=== PATIENT | female | born 1980 | race Two or more races ===

== ENCOUNTER 2025-01-27 16:32 | Inpatient (IN) | payer OTHER ==
[~2025-01-27] VITALS: Ht 162.6 cm; Wt 59.0 kg
--- NOTE | 2025-01-27 16:41 | NUR ---
PTE ALERTA Y ORIENTADA X 3 ESFERAS QUIEN REFIERE TENER LAB REALIZADOS AHORA QUE MUESTRAN HGB EN 7,AL MOMENTO NIEGA ALGUN SINTOMA O [place] VISIBLE.
[2025-01-27] MEDS ORDERED: 0.9 % SODIUM CHLORIDE 1,000 ML IV SCH ×2 (17:00→18:45)
--- NOTE | 2025-01-27 17:02 | NUR ---
TIM BRUNO REALIZA LAB AVA ORDEN MEDICA BAJO MEDIDAS ASEPTICAS. SE ORIENTA PTE QUIEN REFIERE ENETNDER Y ACEPTAR.
[2025-01-27 17:09] LABS: BASO % 0.9 % (0.1-1.2); EOS # 0.15 (0.04-0.54); EOS % 2.6 % (0.7-7.0); LYMPH # 1.32 (1.18-3.74); LYMPH % 23.2 % (19.3-53.1); MEAN CORPUSCULAR HEMOGLOBIN 20.7 pg (25.6-32.2); NEUT # 3.75 (1.56-6.13); NEUT % 66.1 % (34.0-71.1); PLATELET COUNT 394 K/uL (163-369); RED BLOOD COUNT 3.28 M/uL (3.93-5.22)
[2025-01-27 17:20] LABS: HEMATOCRIT 24.1 % (34.1-44.9); HEMOGLOBIN 6.8 g/dL (11.2-15.7)
[2025-01-27] MEDS ORDERED: FUROsemide 20 MG/2 ML VIAL IV SCH (17:30)
[2025-01-27 17:34] LABS: INR 1.05; PARTIAL THROMBOPLASTIN TIME 23.4 SECONDS (22.0-34.0); PROTHROMBIN TIME 11.4 SECONDS (9.0-11.5)
[2025-01-27 17:47] LABS: ALBUMIN 3.9 gm/dL (3.4-5.0); BILIRUBIN TOTAL 0.44 mg/dL (0.3-1.2); CALCIUM 8.7 mg/dL (8.5-10.1); CREATININE SERUM 0.82 mg/dL (0.55-1.02); GFR 75.39; GLOBULINA 3.4 G/DL (2.4-3.5); POTASSIUM 3.29 mEq/L (3.5-5.1); TOTAL PROTEIN 7.3 gm/dL (6.4-8.2)
--- NOTE | 2025-01-27 17:48 | NUR ---
SE REQUIZAN 3 UNIDADES DE PRBC A PTE AVA ORDEN MEDICA. PTE FIRMA CONSENTIMIENTO DE TRANSFUSION, SE COLOCA EN MISMO EN RECORD DE PTE.
[2025-01-27] MEDS ORDERED: FAMOTIDINE/PF 20 MG in 0.9 % SODIUM CHLORIDE 8 ML IV PUSH SCH (18:37)
[2025-01-27] MEDS ORDERED: ACETAMINOPHEN 500 MG GEL..CAP PO PRN (18:45)
[2025-01-27] MEDS ORDERED: POTASSIUM BICARBONATE/CIT AC 25 MEQ TABLET.EFF PO ONE (18:45)
[2025-01-27 22:06] LABS: FERRITIN 1.8 NG/ML (8-252)
[2025-01-27 23:39] VITALS: BP 95/60; O2SAT 96
[2025-01-28] VITALS (8 sets, daily range): BP systolic 99–102; BP diastolic 70–71; O2SAT 98–100
[2025-01-28 02:02] LABS: PH,URINE 6.5 (5.0-8.0); URINE APPEARANCE Clear; URINE BILIRRUBIN Negative (NEGATIVE); URINE BLOOD Negative; URINE COLOR Yellow; URINE GLUCOSE Negative (NEGATIVE); URINE KETONE Trace (NEGATIVE); URINE LEUKOCYTE Negative; URINE NITRATE Negative; URINE PROTEIN Negative (NEGATIVE)
[2025-01-28 02:06] LABS: URINE BACTERIA 1709.8 uL (0.0-1933); URINE EPITHELIAL CELLS 95.1 uL (0.0-38.8); URINE RBC 2.2 uL (0.0-20.8); URINE WBC 17.5 uL (0.0-23.2)
[2025-01-28 02:15] LABS: URINE CAST 0.44 uL (0.0-1.40)
[2025-01-28] MEDS ORDERED: IRON FUM,PS/FOLIC/BCOMP,C NO.9 1 CAP CAPSULE PO SCH (09:00)
[2025-01-28 16:33] LABS: ob NEGATIVE (NEGATIVE)
[2025-01-29 00:42] LABS: BASO % 0.7 % (0.1-1.2); EOS # 0.27 (0.04-0.54); EOS % 4.4 % (0.7-7.0); HEMATOCRIT 32.1 % (34.1-44.9); HEMOGLOBIN 9.7 g/dL (11.2-15.7); LYMPH # 1.79 (1.18-3.74); LYMPH % 29.4 % (19.3-53.1); MEAN CORPUSCULAR HEMOGLOBIN 22.6 pg (25.6-32.2); MONO # 0.44 (0.24-0.82); MONO % 7.2 % (4.7-12.5); NEUT # 3.53 (1.56-6.13); NEUT % 58.1 % (34.0-71.1); PLATELET COUNT 296 K/uL (163-369); RED BLOOD COUNT 4.29 M/uL (3.93-5.22); RED CELL DISTRIBUTION WIDTH 17.8 % (11.6-14.4)
[2025-01-29 00:58] VITALS: O2SAT 98
[2025-01-29 01:31] VITALS: BP 104/69; O2SAT 98
[2025-01-29 04:54] VITALS: O2SAT 98
[2025-01-29] MEDS ORDERED: FAMOTIDINE/PF 20 MG/2 ML VIAL ONE (07:32)
[2025-01-29 07:55] VITALS: BP 102/70
== END 2025-01-29 14:14 | disposition home or self-care (01) | DRG 812 ==
LOC: ER 16:32 → MEDI 19:31
PROVIDERS: General Practice; Internal Medicine Hematology & Oncology; ADMIT Specialist/Technologist, Other Nephrology; ATTEND Specialist/Technologist, Other Nephrology
PROC: 4A12X4Z Monitoring of Cardiac Electrical Activity, External Approach (ICD-10-PCS; principal; 2025-01-28)
PROC: 30233N1 Transfusion of Nonautologous Red Blood Cells into Peripheral Vein, Percutaneous Approach (ICD-10-PCS; 2025-01-28)
DX: D64.9 Anemia, unspecified (principal); D50.8 Other iron deficiency anemias; Z98.84 Bariatric surgery status